=== PATIENT | female | born 1990 | race African-American/Black ===

== ENCOUNTER 2020-07-23 12:35 | Emergency (ER) | payer OTHER, SELFPAY ==
[2020-07-23 12:41] VITALS: BP 116/79; PULSE 100; RESP 17; TEMP 36.3; O2SAT 99
--- NOTE | 2020-07-23 13:24 | ED.GENADULT ---
HPI - General Adult General Chief complaint: Unspecified Stated complaint: poss genital abcess Time Seen by Provider: 07/23/20 13:05 Source: patient Mode of arrival: ambulatory Limitations: no limitations History of Present Illness HPI narrative: A 30-year-old female comes into the emergency department today with complaints of a knot in her groin. Patient states that she thought it may have been in ingrown hair. Patient notes that it is on the corner of her labia. She does note significant pain associated with this. She denies any drainage from the area. Related Data Allergies Allergy/AdvReac Type Severity Reaction Status Date / Time No Known Allergies Allergy Verified 07/23/20 12:43 Review of Systems Review of Systems: Narrative: CONSTITUTIONAL: Denies fever, chills, or sweats. EYES: Denies visual changes, redness, or discharge. ENT: Denies rhinorrhea, congestion, sore throat, or otalgia. CARDIOVASCULAR: Denies chest pain, palpitations, or edema. RESPIRATORY: Denies cough or dyspnea. GASTROINTESTINAL: Denies abdominal pain, nausea, vomiting, or diarrhea. GENITOURINARY: Denies dysuria or hematuria. SKIN: Denies rash or itching. MUSCULOSKELETAL: Denies back pain, joint pain, or myalgia. NEUROLOGIC: Denies headache, numbness, dizziness, or weakness. PSYCHIATRIC: Denies anxiety or depression. COUNTS INCLUDE 234 BEDS AT THE [facility] Social History Social History Gender identity (if verbalized by the patient): Female Exam Narrative: Exam Narrative: GENERAL: Well-appearing, well-nourished, and in no acute distress. HEAD: Normocephalic, atraumatic. EYES: PERRLA and EOMI. ENT: Nares clear, no rhinorrhea or epistaxis. Mucous membranes moist. NECK: Supple. No adenopathy or masses. No carotid bruits or JVD CHEST: Clear to auscultation. No respiratory distress. No wheezes rales or rhonchi HEART: Regular rate and rhythm. No murmur heard. Normal peripheral pulses. ABDOMEN: Soft, nontender, nondistended, normal active bowel sounds. : Chaperoned by GRETEL Perez. Small 3cm cyst with purulent drainage noted on the patient's L labia minora. EXTREMITIES: Normal range of motion. No edema. SKIN: Warm, dry, no rash. NEURO: No focal deficits. Alert and oriented x3. PSYCH: Normal mood and affect. Course Vital Signs Vital signs: Vital Signs Temperature 36.3 C L 07/23/20 12:41 Pulse Rate 100 07/23/20 12:41 Respiratory Rate 17 07/23/20 12:41 Blood Pressure 116/79 07/23/20 12:41 Pulse Oximetry 99 07/23/20 12:41 Temperature 36.3 C L 07/23/20 12:41 Pulse Rate 100 07/23/20 12:41 Respiratory Rate 17 07/23/20 12:41 Blood Pressure 116/79 07/23/20 12:41 Pulse Oximetry 99 07/23/20 12:41 Procedures Abscess I/D bartholin's gland: Side (if applicable): left Local Anesthetic: lidocaine 1% and with epi Amount of anesthesia used (mL): 7 Technique: incised with #15 blade Amount of fluid expressed (mL): 4 Irrigation: No Packing used?: plain I&D Results: Pus Medical Decision Making MDM Narrative Medical decision making narrative: In brief this is a 30-year-old female who came into the emergency department with a cystic structure noted on her left labia minora. After exam this seemed consistent with a likely Bartholin's cyst. This did spontaneously rupture while the patient was in the emergency department using the restroom. After discussing options with the patient, aggressive versus conservative, aggressive being I&D with antibiotics and sitz bath's, conservative being sitz bath and antibiotics alone the patient did opt to go ahead and go for the I&D. I was able to express out a small amount of purulent material. The cyst size was too small to accommodate a Word catheter. Plain gauze dressing was placed. Patient will be discharged with a prescription for Bactrim and encouraged to do sitz bath's and follow-up with her brusher and shearer in approxim
== END 2020-07-23 14:25 | disposition home or self-care (01) ==
PROVIDERS: Emergency Provider Emergency Medicine
DX: N75.1 Abscess of Bartholin's gland (principal)
CPT/HCPCS: 56420; 99283; A9270

== ENCOUNTER 2021-03-05 12:20 | Emergency (ER) | payer OTHER, SELFPAY ==
--- NOTE | ~2021-03-05 | XR_ITS ---
EXAMINATION: XR elbow LT min 3V DATE: 03/05/2021 13:41 INDICATION: Left elbow pain and swelling TECHNIQUE: Anteroposterior, two oblique and lateral views of the left elbow were obtained. COMPARISON: None. FINDINGS: Likely old healed fracture deformity with some posterior and medial bowing at the proximal ulna. Like ly chronic posterior subluxation at the radiocapitellar articulation with widening at the posterior a nd radial side of the radiocapitellar articulation and chronic remodeling of the articular surface of the radial head. No acute fracture. Soft tissues are unremarkable. No left elbow joint effusion. IMPRESSION: 1. Findings suggestive of an old healed fracture the proximal ulna and chronic malalignment with post erior subluxation and varus angulation at the radiocapitellar articulation with secondary osteoarthri tis and remodeling of the articular surface of the radial head. Reviewed, dictated and finalized at location A. IMPRESSION: 1. Findings suggestive of an old healed fracture the proximal ulna and chronic malalignment with posterior subluxation and varus angulation at the radiocapite llar articulation with secondary osteoarthritis and remodeling of the articular surface of the radial head.
[2021-03-05 12:25] VITALS: BP 120/77; PULSE 86; RESP 14; TEMP 36.7; O2SAT 99
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
[2021-03-05] MEDS: ACETAMINOPHEN 500 MG TABLET 1000 MG PO (13:48)
[2021-03-05] MEDS: IBUPROFEN 600 MG TABLET PO (13:48)
[2021-03-05 13:53] LABS: Basophils Percent Auto 0.5 % (0.2-1.2); Eosinophils Absolute Auto 0.2 K/mm3 (0-0.3); Eosinophils Percent Auto 2.2 % (0-4.4); Hematocrit 35.7 % (37.0-47.0); Hemoglobin 11.9 g/dL (12.0-15.0); Immature Granulocyte Absolute 0.01 K/mm3 (0.00-0.031); Immature Granulocyte Percent A 0.1 % (0-0.5); Lymphocytes Percent Auto 42.4 % (18.3-44.2); Mean Corpuscular HGB Conc 33.3 g/dl (32-36); Mean Corpuscular Hemoglobin 32.9 pg (26-34); Mean Corpuscular Volume 98.6 fl (80-100); Mean Platelet Volume 9.1 fl (7.4-10.4); Monocytes Absolute Auto 0.9 K/mm3 (0.1-0.6); Neutrophils Absolute Auto 3.8 K/mm3 (1.3-6.7); Neutrophils Percent Auto 44.8 % (45.5-73.1); Platelet Count Result 360 k/mm3 (150-375); Red Blood Count 3.62 M/mm3 (4.2-5.4); Red Cell Distribution Width 12.8 % (11.5-14.5); White Blood Count 8.5 K/mm3 (4.5-10.0)
[2021-03-05 14:06] LABS: Anion Gap 9 mmol/L (8-16); Blood Urea Nitrogen 9 mg/dL (7-17); Calcium 9.7 mg/dL (8.4-10.2); Carbon Dioxide 22 mmol/L (22-30); Chloride 109 mmol/L (98-107); Estimated CRCL calculation 82 ml/min; Estimated Glomerular Filt Rate > 60; Glucose 118 mg/dL (65-110); Potassium 4.5 mmol/L (3.4-5.0); Sodium 140 mmol/L (137-145)
[2021-03-05 14:37] LABS: CRP 0.7 mg/dL (<1.0)
[2021-03-05 14:41] LABS: Erythrocyte Sedimentation Rate 78 mm/hr (0-20)
--- NOTE | 2021-03-05 16:00 | PC.NURSE ---
During rounds, pt not in room. Belongings are not in room.
== END 2021-03-05 16:00 | disposition home or self-care (01) ==
PROVIDERS: Emergency Provider Emergency Medicine; PCP Family Medicine
DX: M71.9 Bursopathy, unspecified (principal); F17.210 Nicotine dependence, cigarettes, uncomplicated
CPT/HCPCS: 36415; 73080; 80048; 85025; 85652; 86140; 99283; A9270

== ENCOUNTER 2021-03-06 09:09 | Emergency (ER) | payer OTHER, SELFPAY ==
[2021-03-06 09:12] VITALS: BP 132/88; PULSE 82; RESP 20; TEMP 36.5; O2SAT 98
--- NOTE | 2021-03-06 10:04 | ED.GENADULT ---
HPI - General Adult General Chief complaint: Extremity Problem,Nontraumatic Stated complaint: left arm pain Time Seen by Provider: 03/06/21 10:02 Source: patient Mode of arrival: ambulatory Limitations: no limitations History of Present Illness HPI narrative: Patient was seen here last night for same complaint. She had to leave due to a family emergency prior to getting her discharge instructions and prescriptions. She would just like that information and she is ready to go she states that her elbow pain is unchanged. Plan reviewed with patient. Onset (ago): year(s) Pain Consistency: constant Related Data Home Medications Medication Instructions Recorded Confirmed famotidine 03/05/21 Allergies Allergy/AdvReac Type Severity Reaction Status Date / Time No Known Allergies Allergy Verified 03/06/21 10:04 Review of Systems Review of Systems: All systems reviewed & are unremarkable except as noted in HPI and below [facility] Social History Social History Smoking status: Current every day smoker Tobacco type: cigarettes Alcohol intake: never Substance use: never Gender identity (if verbalized by the patient): Female Exam Const: General: no acute distress and alert Orientation/consciousness: patient oriented x3 HENMT: Head: normal to inspection Eyes: Pupils: Equal, round and reactive pupils present Resp: Effort & Inspection: normal respiratory effort Auscultation: clear to auscultation bilaterally Cardio: Rate: regular rate Rhythm: regular rhythm Skin: General skin exam: normal color Wounds: no wounds Extrem: General: normal to inspection Other: Unable to active or passively extend left elbow due to pain. No crepitus. Psych: Mental Status: mental status grossly normal Course Course Emergency Course: Patient would just like her discharge papers from yesterday. Physician yesterday was treating for a mild cellulitis with some Keflex will repeat that patient can take 800 mg of ibuprofen 3 times daily for pain and she was given a referral to an orthopedic surgeon. Reviewed results of the x-ray again with patient, they were reviewed with her last evening as well. Vital Signs Vital signs: Vital Signs Temperature 36.5 C 03/06/21 09:12 Pulse Rate 82 03/06/21 09:12 Respiratory Rate 20 03/06/21 09:12 Blood Pressure 132/88 03/06/21 09:12 Pulse Oximetry 98 03/06/21 09:12 Temperature 36.5 C 03/06/21 09:12 Pulse Rate 82 03/06/21 09:12 Respiratory Rate 20 03/06/21 09:12 Blood Pressure 132/88 03/06/21 09:12 Pulse Oximetry 98 03/06/21 09:12 Medical Decision Making Vital Signs Vital Signs: Vital Signs Temperature 36.5 C 03/06/21 09:12 Pulse Rate 82 03/06/21 09:12 Respiratory Rate 20 03/06/21 09:12 Blood Pressure 132/88 03/06/21 09:12 Pulse Oximetry 98 03/06/21 09:12 Temperature 36.5 C 03/06/21 09:12 Pulse Rate 82 03/06/21 09:12 Respiratory Rate 20 03/06/21 09:12 Blood Pressure 132/88 03/06/21 09:12 Pulse Oximetry 98 03/06/21 09:12 Discharge Plan Discharge Clinical Impression: Elbow subluxation, left Qualifiers: Encounter type: subsequent encounter Qualified Code(s): S53.102D - Unspecified subluxation of left ulnohumeral joint, subsequent encounter Cellulitis Qualifiers: Site of cellulitis: extremity Site of cellulitis of extremity: upper extremity Laterality: left Qualified Code(s): L03.114 - Cellulitis of left upper limb Chronic pain Qualifiers: Chronic pain type: due to trauma Qualified Code(s): G89.21 - Chronic pain due to trauma Patient Disposition: Home, Self-Care Condition: Stable Instructions: Antibiotic Form, Cellulitis (ED), How to Use a Sling (ED) Additional Instructions: Use sling for comfort. Complete your antibiotics as prescribed. You may continue to take ibuprofen or Tylenol for the pain, you may take 800 mg of ibuprofen every 8
== END 2021-03-06 10:55 | disposition home or self-care (01) ==
LOC: ANHED 10:29
PROVIDERS: Emergency Provider Emergency Medicine; PCP Family Medicine
DX: L03.114 Cellulitis of left upper limb (principal); S53.102 Unspecified subluxation of left ulnohumeral joint; G89.21 Chronic pain due to trauma; X58.XXXS Exposure to other specified factors, sequela
CPT/HCPCS: 99283; A4565